=== PATIENT | female | born 1960 | race Caucasian/White ===

== ENCOUNTER 2017-08-06 08:14 | Emergency (ER) | payer BC, OTHER ==
[2017-08-06 08:20] VITALS: BMI 22.4
[2017-08-06] MEDS ORDERED: morphine CARPU-JECT 4 MG/1 ML DISP.SYRIN IVPUSH ONE (08:49)
[2017-08-06] MEDS ORDERED: ONDANSETRON 4 MG/2 ML VIAL IVPUSH ONE ×2 (08:49→09:28)
--- NOTE | 2017-08-06 08:53 | PDOC ---
History of Present Illness <Nadja Carter - Last Filed: 08/06/17 09:08> - General History Source: Patient Exam Limitations: No Limitations - History of Present Illness Initial Comments: 08/06/17 08:52 56 yr female missed a step and fell injuring her right ankle and foot this AM. Pt has deformed ankle and 10/10 pain no PMHX no allergies. <Lisa Dyson - Last Filed: 08/07/17 08:41> - General Chief Complaint: Injury Stated Complaint: FALL Time Seen by Provider: 08/06/17 08:46 Past History <Nadja Carter - Last Filed: 08/06/17 09:08> - Past Medical History COPD: No Other medical history: NONE - Suicide/Smoking/Psychosocial Hx Smoking History: Never smoked Hx Alcohol Use: No Drug/Substance Use Hx: No <Lisa Dyson - Last Filed: 08/07/17 08:41> - Past Medical History Allergies/Adverse Reactions: Allergies Allergy/AdvReac Type Severity Reaction Status Date / Time No Known Allergies Allergy Verified 08/06/17 09:45 Home Medications: Ambulatory Orders NK [No Known Home Medication] 08/06/17 *Physical Exam - Vital Signs Last Vital Signs Temp Pulse Resp BP Pulse Ox 98.5 F 135 H 20 152/109 99 08/06/17 08:16 08/06/17 08:16 08/06/17 08:16 08/06/17 08:16 08/06/17 08:16 <Nadja Carter - Last Filed: 08/06/17 09:08> - Vital Signs Last Vital Signs Temp Pulse Resp BP Pulse Ox 98.5 F 135 H 20 152/109 99 08/06/17 08:16 08/06/17 08:16 08/06/17 08:16 08/06/17 08:16 08/06/17 08:16 - Physical Exam General Appearance: Yes: Nourished HEENT: positive: EOMI, COTY Vascular Pulses: Dorsalis-Pedis (R): 1+ (cool to touch ), Doralis-Pedis (L): 3+ Musculoskeletal: positive: Normal Inspection Extremity: positive: Tender, Swelling, Other (deformed) Integumentary: positive: Normal Color, Dry, Warm Neurologic: positive: Fully Oriented, Alert, Normal Mood/Affect, Normal Response , Motor Strength 5/5 <Lisa Dyson - Last Filed: 08/07/17 08:41> Procedures - Splinting Splint Location: Right: Ankle Pre-Proc Neuro Vasc Exam: normal Hand-Made Type: orthoglass Splint Type: Yes: Short Leg (posterior splint) Post-Proc Neuro Vasc Exam: changed from pre-exam (foot warm, pink stable pulses) Abdirizak Bandage: yes, 3" Complications: No <Lisa Dyson - Last Filed: 08/07/17 08:41> ED Treatment Course - Medications Given in the ED: ED Medications Discontinued Medications Generic Name Dose Route Start Last Admin Trade Name Freq PRN Reason Stop Dose Admin Morphine Sulfate 4 mg 08/06/17 08:49 08/06/17 09:03 Morphine Injection - IVPUSH 08/06/17 08:50 4 mg ONCE ONE Administration Ondansetron HCl 4 mg 08/06/17 08:49 08/06/17 09:05 Zofran Injection IVPUSH 08/06/17 08:50 4 mg ONCE ONE Administration <Nadja Carter - Last Filed: 08/06/17 09:08> - LABORATORY CBC & Chemistry Diagram: 08/06/17 10:27 08/06/17 10:27 - RADIOLOGY Radiology Studies Ordered: Category Date Time Status ANKLE & FOOT-RIGHT* [RAD] Stat Radiology 08/06/17 08:49 Ordered <Lisa Dyson - Last Filed: 08/07/17 08:41> Medical Decision Making - Medical Decision Making 08/06/17 08:56 cc: right ankle injury with deformity missed a step and fell will give morphine , zofran xray r/o dislocation fracture will consult ortho 08/06/17 09:00 08/06/17 09:32 paged ortho records and information manager /Ronen/Arpit awaiting call back. 08/06/17 09:49 second call to who is records and information manager for the group. The office states the doctor is not in until 12. I have called cell phone and left a message. 1020: call back from who reviewed the xray and the patient needs a tertiary care /trauma surgoen to repair the leg. will transfer to [facility]. pt agrees 08/06/17 10:52 08/06/17 10:58 pt placed in posterior leg splint. report given to accepting orthopedist Dr.David Francisco at [facility] pt to be transfered to the ER via [facility] ambulance. <Lisa Dyson - Last Filed: 08/07/17 08:41> *DC/Admit/Observation/Transfer - Attestations Physician Attestion: I independently examined and evaluated this patient in conjunction with CLAUDIA Dyson. I reviewed the case and agree with the mid-level practitioner's assessment, diagnosis and disposition. Exam with deformity to R ankle, suspect fracture/dislocation. Neurovascular exam intact. <Nadja Carter - Last Filed: 08/06/17 09:08> <Lisa Dyson - Last Filed: 08/07/17 08:41> Diagnosis at time of Disposition: Injury of ankle Fracture, ankle Qualifiers: Encounter type: initial encounter Fracture type: closed Laterality: right Qualified Code(s): S82.891A - Other fracture of right lower leg, initial encounter for closed fracture - Discharge Dispostion Disposition: TRANSFER ACUTE CARE/OTHER HOSP Condition at time of disposition: Fair
[2017-08-06] MEDS ORDERED: morphine SULFATE 4 MG/ML VIAL ONE (08:56)
[2017-08-06] MEDS ORDERED: ONDANSETRON 4 MG/2 ML VIAL ONE ×2 (08:57→09:31)
[2017-08-06] MEDS ORDERED: HYDROmorphone HCL CARPU-JECT 1 MG/1 ML DISP.SYRIN IVPUSH ONE ×4 (09:31→11:33)
[2017-08-06] MEDS ORDERED: HYDROmorphone HCL CARPU-JECT 1 MG/1 ML DISP.SYRIN ONE ×3 (09:48→11:49)
[2017-08-06 10:54] LABS: MCH 30.4 pg (25.7-33.7); MCHC 32.8 g/dl (32.0-36.0); MEAN CELL VOLUME 92.5 fl (80-96); MEAN PLT VOLUME 9.5 fl (7.5-11.1); PLATELET COUNT 230 K/MM3 (134-434); WHITE BLOOD COUNT 7.4 K/mm3 (4.0-10.0)
[2017-08-06 11:23] LABS: ALBUMIN 4.2 g/dl (3.4-5.0); ALK PHOS 97 U/L (45-117); ANION GAP 13 (8-16); BILIRUBIN,TOTAL 0.6 mg/dL (0.2-1.0); CALCIUM 9.5 mg/dL (8.5-10.1); CO2 24 mmol/L (21-32); CREATININE 0.9 mg/dL (0.55-1.02); GLUCOSE,RANDOM 130 mg/dL (74-106); SGPT/ALT 59 U/L (12-78)
[2017-08-06 11:26] LABS: SGOT/AST 37 U/L (15-37)
[2017-08-06 11:31] LABS: INR 1.08 (0.82-1.09); PROTHROMBIN TIME (PATIENT) 12.2 SEC (9.98-11.88)
[2017-08-06 11:38] VITALS: BP 144/88; PULSE 87; TEMP 97.9
== END 2017-08-06 12:36 | disposition short-term general hospital (02) ==
LOC: JER 08:14
PROC: 2W3QX1Z Immobilization of Right Lower Leg using Splint (ICD-10-PCS; principal; 2017-08-06)
DX: S82.64XA Nondisplaced fracture of lateral malleolus of right fibula, initial encounter for closed fracture (principal); W10.8XXA Fall (on) (from) other stairs and steps, initial encounter; Z91.81 History of falling; Y93.89 Activity, other specified; Y92.018 Other place in single-family (private) house as the place of occurrence of the external cause
CPT/HCPCS: 36415; 73590-TC-RT; 73610-TC-RT; 73630-TC-RT; 80053; 85027; 85610; 99285-25